=== PATIENT | female | born 1935 | race African-American/Black ===

== ENCOUNTER 2016-09-30 09:23 | Emergency (ER) | payer OTHER, MEDICAID ==
[~2016-09-30] VITALS: Ht 167.6 cm; Wt 65.8 kg
[2016-09-30 09:25] VITALS: BP 155/70; PULSE 102; RESP 20; TEMP 97.9; O2SAT 94
--- NOTE | 2016-09-30 09:25 | NUR ---
Pt BIB ALS and placed to ER bed 06 and to gown. Pt from [facility] s/p syncope episode lasting approx 2 min. Pt denies hitting head, no trauma noted. Pt currently AAOx3, even and non-labored respirations, BBS clear. C/o Left shoulder and hip pain. Pt's states "I always have pain."
--- NOTE | 2016-09-30 09:30 | NUR ---
Dr. Ryan at bedside to assess pt.
--- NOTE | 2016-09-30 09:50 | NUR ---
Pt to CT via stretcher.
[2016-09-30 10:02] LABS: BASOPHILS % (AUTO) 0.7 % (0.0-2.0); EOSINOPHILS # (AUTO) 0.1 K/uL (0.0-0.4); EOSINOPHILS % (AUTO) 2.6 % (0.0-4.0); HEMATOCRIT 35.1 % (36-48); HEMOGLOBIN 11.7 g/dL (12.0-16.0); LYMPHOCYTES # (AUTO) 0.8 K/uL (1.0-5.5); LYMPHOCYTES % (AUTO) 17.4 % (20.5-51.5); MEAN CORPUSCULAR HEMOGLOBIN 29 pg (27-31); MEAN CORPUSCULAR HGB CONC 33 % (32-36); MEAN CORPUSCULAR VOLUME 86 fL (79.0-98.0); MONOCYTES # (AUTO) 0.4 K/uL (0.0-1.0); MONOCYTES % (AUTO) 8.3 % (1.7-9.3); NEUTROPHILS # (AUTO) 3.3 K/uL (1.8-7.7); PLATELET COUNT (AUTO) 207 K/uL (130-430); RED CELL DISTRIBUTION WIDTH 13.8 % (9.0-15.0); WHITE BLOOD COUNT (AUTO) 4.6 K/uL (4.8-10.8)
[2016-09-30 10:06] LABS: ANION GAP 7 (5-15); CALCIUM 8.8 mg/dL (8.4-11.0); CHLORIDE 103 mmol/L (98-107); CREATININE 0.91 mg/dL (0.55-1.30); GLUCOSE 91 mg/dL (70-99); POTASSIUM 3.9 mmol/L (3.5-5.1); SODIUM SERUM 137 mmol/L (136-145); UREA NITROGEN, BLOOD 19 mg/dL (8-21)
--- NOTE | 2016-09-30 10:08 | NUR ---
Pt returns from CT.
[2016-09-30 10:11] LABS: ALANINE AMINOTRANSFERASE 19 U/L (12-78); ALBUMIN 3.2 g/dL (3.4-4.8); ASPARTATE AMINOTRANSFERASE 31 U/L (10-37); CREATINE KINASE, TOTAL 38 U/L (26-192); TOTAL BILIRUBIN 0.4 mg/dL (0.0-1.0); TOTAL PROTEIN, SERUM 7.3 g/dL (6.4-8.3)
[2016-09-30 10:33] LABS: INR 0.9 (0.8-1.2); PROTHROMBIN TIME 10.3 SECS (9.5-12.5)
--- NOTE | 2016-09-30 11:00 | NUR ---
Pt denies pain or discomfort and no needs verbalized at this time.
--- NOTE | 2016-09-30 12:36 | NUR ---
call placed for 2GNA diet
[2016-09-30 13:50] VITALS: BP 131/71; PULSE 81; RESP 18; TEMP 97.5; O2SAT 99
--- NOTE | 2016-09-30 13:56 | NUR ---
Patient given written and verbal discharge instructions and verbalizes understanding. ER MD discussed with patient the results and treatment provided. Given copies of tests performed in ER. Patient in stable condition. ID arm band removed. Rx of NONE given. Patient educated on pain management and to follow up with PMD. Pain Scale 0/10. Opportunity for questions provided and answered. [facility]
== END 2016-09-30 13:50 | disposition home or self-care (01) ==
LOC: SED 09:23
DX: R55 Syncope and collapse (principal); I10 Essential (primary) hypertension; D64.9 Anemia, unspecified; Z86.59 Personal history of other mental and behavioral disorders; Z88.0 Allergy status to penicillin; Z88.5 Allergy status to narcotic agent; Z91.02 Food additives allergy status
CPT/HCPCS: 36415; 70450-TC; 71010; 80053; 82550-TC; 84484; 85025; 85610-TC; 85730-TC; 93005; 99285